=== PATIENT | male | born 1990 | race Caucasian/White ===

== ENCOUNTER 2016-09-28 08:49 | Emergency (ER) | payer OTHER ==
--- NOTE | ~2016-09-28 | ER ---
PATIENT'S NAME: ADITI KOHLER [facility] AGE: 26 Y [address] ROOM: [place] [id number] LOCATION: ED ADMIT DATE: 09/28/2016 ER/Outpatient Report DISCHARGE DATE: 09/28/2016 FAMILY PHYSICIAN: PHYSICIAN, NO ATTENDING PHYSICIAN: Arturo Lora CHIEF COMPLAINT: Abdominal pain, nausea, and vomiting. HISTORY OF PRESENT ILLNESS: Mr. Kohler notes that he has not had a bowel movement or passed flatus since Tuesday morning. He has no specific complaints other than inability to tolerate oral intake. He states he vomits everything that he tries to take in. He has no history of abdominal surgeries. He has not tried anything besides his usual 3 times a day marijuana to treat his symptoms. He has not followed up with anyone, and has not seen anyone for this issue. He denies any pertinent medical conditions or medical history. PAST MEDICAL HISTORY: Documented on the record and reviewed by me. SOCIAL HISTORY: Documented on the record and reviewed by me. MEDICATIONS: Documented on the record and reviewed by me. ALLERGIES: DOCUMENTED ON THE RECORD AND REVIEWED BY ME. REVIEW OF SYSTEMS: All systems were reviewed and negative except as noted in the HPI. PHYSICAL EXAMINATION: VITAL SIGNS: Blood pressure is 146/86, pulse 69, respiratory rate is 20, temperature 97.8, and SpO2 is 97% on room air. Pain 0/10. GENERAL: An age-appropriate male, sitting semi-upright on the exam table. No apparent pain or distress. NEUROLOGIC: Awake and alert. GCS is 15. No focal deficits. No asymmetry. HEENT: Normocephalic, atraumatic. Eyes are PERRL. Oropharynx is clear, slightly dry. NECK: Supple. Trachea is midline. CHEST: Heart is regular rate and rhythm with no murmurs. LUNGS: Clear to auscultation bilaterally with no rhonchi, wheezes, or rales. ABDOMEN: Soft, nontender, and nondistended. No rebound or guarding. Bowel PATIENT'S NAME: ADITI KOHLER [facility] AGE: 26 Y [address] ROOM: [place] [id number] LOCATION: ED ADMIT DATE: 09/28/2016 ER/Outpatient Report DISCHARGE DATE: 09/28/2016 FAMILY PHYSICIAN: PHYSICIAN, NO ATTENDING PHYSICIAN: Arturo Lora sounds are present throughout. BACK: Normal to inspection and palpation. No CVA tenderness. EXTREMITIES: Warm and well perfused with no deformities or edema. SKIN: Clean, dry, and intact. LABORATORY DATA AND X-RAYS: Three-way abdomen with possible ileus, no pulmonary abnormalities per Radiology. CBC: White count of 16.7 mostly neutrophils, hemoglobin 17.3, and platelets of 274. CMS: Sodium of 131, potassium of 2.7, chloride is 87, glucose is 183, and creatinine 0.9. GFR is greater than 60. No LFT abnormalities. IMPRESSION: 1. Gastroenteritis. 2. Hypokalemia, hyponatremia, and hypochloremia. 3. Possible hyperemesis secondary to marijuana. 4. Mild ileus. EMERGENCY DEPARTMENT COURSE: The patient was seen and evaluated. Decreased stool output likely secondary to decreased oral intake. He was given Zofran and a banana bag to help improve his electrolyte abnormalities. I offered admission to the hospital, and the patient declined. He would prefer to go home. We will give him some Zofran to have at home. He needs to return if he continues to not tolerate oral intake. All questions were answered. The patient was discharged in good condition otherwise. The patient's exam and history are nonsurgical in nature. I also encouraged him to stop smoking marijuana. All questions were answered, and the patient was discharged. MD BARBARA SWIFT/yasmin /[id number] d: 09/28/16 1809 t: 10/18/16 1654, OUTPATIENT REPORT
[2016-09-28 09:23] LABS: HEMATOCRIT 46.7 % (37.0-53.0); HEMOGLOBIN 17.3 g/dL (12.0-17.0); MCH 30.5 pg (27.0-34.0); MCV 82.2 fl (83.0-98.0); MPV 11.4 fl (9.4-12.4); PLATELET COUNT 274 K/uL (150-450); RBC 5.68 M/uL (4.00-6.00); RDW-CV 11.9 % (11.9-14.6)
[2016-09-28 09:28] LABS: WBC 16.7 K/uL (4.0-11.0)
[2016-09-28 09:39] LABS: ALBUMIN 3.9 gm/dL (3.5-5.0); ALK PHOS 94 IU/L (33-138); ALT 21 IU/L (12-78); AST 18 IU/L (10-40); BLOOD UREA NITROGEN 18 mg/dL (6-24); CALCIUM 9.4 mg/dL (8.5-10.5); CO2 33 mMol/L (22-32); CREATININE 0.9 mg/dL (0.6-1.3); ESTIMATED GFR (MDRD EQUATION) > 60; SODIUM 131 mMol/L (135-145); TOTAL BILIRUBIN 0.8 mg/dL (0.0-1.5); TOTAL PROTEIN 8.3 g/dL (6.0-8.4)
[2016-09-28 09:45] LABS: ANION GAP 13.7 (10.0-19.0); CHLORIDE 87 mMol/L (96-110); POTASSIUM 2.7 mMol/L (3.7-5.1)
[2016-09-28 10:19] LABS: ABSOLUTE NEUTROPHIL CT (ANC) 13.9 K/uL (1.4-9.0); BANDED NEUTROPHIL # 0.2 K/uL (0.0-0.1); BANDED NEUTROPHILS % 1 %; LYMPHOCYTE # 1.8 K/uL (0.8-4.0); LYMPHOCYTE % 11 %; SEGMENTED NEUTROPHIL # 13.7 K/uL (1.4-9.0); SEGMENTED NEUTROPHIL % 82 %
== END 2016-09-28 11:04 | disposition disaster alternative care site (69) ==
LOC: GMED 08:49
PROVIDERS: Emergency Medicine
DX: K52.9 Noninfective gastroenteritis and colitis, unspecified (principal); K56.7 Ileus, unspecified; E87.6 Hypokalemia; E87.1 Hypo-osmolality and hyponatremia; E87.8 Other disorders of electrolyte and fluid balance, not elsewhere classified
CPT/HCPCS: J3411; J7030